=== PATIENT | female | born 1945 | race Caucasian/White ===

== ENCOUNTER 2018-09-05 04:40 | Day surgery (SDC) | payer OTHER ==
[~2018-09-05 04:40] MED LIST: AMIODARONE HCL200 MG PO; ASPIR 8181 MG PO; AVAPRO150 MG PO; CATAPRES0.3 M1 PO; COREG PO; HYDRALAZINE HCL25 MG PO; SINGULAIR10 MG PO; SYNTHROID125 MCG PO
[2018-09-05] MEDS ORDERED: KETO10TA2 PO (11:49)
[2018-09-05] MEDS ORDERED: CEFADROXIL500 MG PO (11:49)
== END 2018-09-05 16:55 | disposition home or self-care (01) ==
LOC: EDBD → CIR.AMB 04:40
DX: S52.571A Other intraarticular fracture of lower end of right radius, initial encounter for closed fracture (principal)
CPT/HCPCS: 20902; 25609; C1776

== ENCOUNTER 2019-07-16 12:04 | Inpatient (IN) | payer OTHER ==
[~2019-07-16] VITALS: Ht 30.5 cm; Wt 4.0 kg
[~2019-07-16 12:04] MED LIST changes: +CEFADROXIL500 MG PO; +KETO10TA2 PO
[2019-07-18] MEDS ORDERED: ELIQUIS2.5 MG PO (08:35)
[2019-07-18] MEDS ORDERED: ULTRACET PO (08:35)
== END 2019-07-18 15:05 | disposition home or self-care (01) | DRG 481 ==
LOC: ER 12:04 → SURH 18:41 → SEC-K 18:41 → SURG 23:51 → SEC-K 07-17 00:10 → SURH 07-17 00:11
PROVIDERS: ADMIT Orthopaedic Surgery
PROC: 0QS804Z Reposition Right Femoral Shaft with Internal Fixation Device, Open Approach (ICD-10-PCS; principal; 2019-07-16)
PROC: 0PSKXZZ Reposition Right Ulna, External Approach (ICD-10-PCS; 2019-07-16)
DX: S72.144A Nondisplaced intertrochanteric fracture of right femur, initial encounter for closed fracture (principal); M80.051A Age-related osteoporosis with current pathological fracture, right femur, initial encounter for fracture; S52.021A Displaced fracture of olecranon process without intraarticular extension of right ulna, initial encounter for closed fracture; I10 Essential (primary) hypertension; E03.8 Other specified hypothyroidism; E66.09 Other obesity due to excess calories; I48.0 Paroxysmal atrial fibrillation; Z79.01 Long term (current) use of anticoagulants